=== PATIENT | female | born 1975 | race Caucasian/White ===

== ENCOUNTER 2016-09-03 20:27 | Emergency (ER) | payer OTHER ==
[~2016-09-03 20:27] MED LIST: ABILIFY PO; ACT30 PO; AMBIEN10 MG PO; ASPIR 8181 MG PO; ATI1 PO; ATIVAN1 MG PO; CIPRO500 MG PO; CLONAZEPAM1 MG PO; CYCLOBENZAPRINE5 MG PO; CYMBALTA PO; CYMBALTA20 M1 PO; DEP250 PO; DEPAKOTE500 MG PO; DIVALPROEX SOD500 M2 PO; GABAPENTIN300 M2 PO; GLU5 PO; GLUCOTROL5 MG PO; JANUMET; JANUMET1 TAB PO; KLO1 PO; KLONOPIN1 MG PO; LAC PO; LEVAMIR; LEVAMIR SQ; LEVAQUIN750 MG PO; LEVEMIR100 U/M1 SC; LEVEMIR100 U/M1 SQ; LEVOTHYROXIN0.025 M2 PO; LEXAPRO PO; LEXAPRO20 MG PO; LOP600 PO; LOVASTATIN20 MG PO; LOVASTATIN40 MG PO; MAC100 PO; MACROBID100 MG PO; MEDDP PO; MEV20 PO; MOTRIN800 MG PO; OXYCODONE HCL A1 TAB PO; PERCOCET1 TA2 PO; REG5 PO; REGLAN10 MG PO; RES7 PO; SYN25 PO; SYN5 PO; SYNTHROID0.025 MG; TEMAZEPAM15 MG PO; VENTOLIN H0.09 MG/A1 INH; ZES20 PO; ZESTRIL20 MG PO; ZITHROMAX Z-PA250 MG PO; ZOF4 PO; [UNRECOGNIZED DRUG - REMARK] PO
[2016-09-03 22:11] LABS: BASOPHIL % 0.3 % (0-2); PLATELET COUNT 319 x10^3mcL (130-400); RED CELL DISTRIBUTION WIDTH 13.1 % (11.5-14.5)
[2016-09-03 22:19] LABS: CALCIUM 9.7 mg/dL (8.5-10.1); CARBON DIOXIDE 23.7 mmol/L (21-32); CHLORIDE SERUM 98 mmol/L (98-107); CREATININE SERUM 0.8 mg/dL (0.6-1.0); GFR1 > 60 mL/min; GLUCOSE SERUM 365 mg/dL (74-106); POTASSIUM SERUM 3.7 mmol/L (3.5-5.1); SODIUM SERUM 136 mmol/L (136-145)
[2016-09-03 22:23] LABS: ALKALINE PHOSPHATASE 54 U/L (46-116); ALT/SGPT 24 U/L (14-59); AMYLASE 33 U/L (25-115); AST/SGOT 10 U/L (15-37); BILIRUBIN TOTAL 0.31 mg/dL (0.20-1.00); LIPASE 78 IU/L (73-393); TOTAL PROTEIN, SERUM 7.9 g/dL (6.4-8.2)
[2016-09-03 23:17] LABS: UA SPECIFIC GRAVITY 1.025 (1.005-1.035); microscopic required? YES; urine erythrocyte 3+ (NEGATIVE)
[2016-09-04 01:13] VITALS: BP 144/97
== END 2016-09-04 01:13 | disposition home or self-care (01) ==
LOC: ED 20:27
PROVIDERS: Specialist
DX: N39.0 Urinary tract infection, site not specified (principal); N76.0 Acute vaginitis; E66.01 Morbid (severe) obesity due to excess calories; E78.00 Pure hypercholesterolemia, unspecified; E03.9 Hypothyroidism, unspecified; M79.7 Fibromyalgia; M06.9 Rheumatoid arthritis, unspecified; I11.9 Hypertensive heart disease without heart failure; E11.65 Type 2 diabetes mellitus with hyperglycemia
CPT/HCPCS: 83880; 87491; 87591; J0696; J1170; J1815; J1885; J2405; J3010; J7030

== ENCOUNTER 2016-09-06 03:52 | Emergency (ER) | payer OTHER ==
[2016-09-06 04:48] LABS: BASOPHIL % 0.5 % (0-2); PLATELET COUNT 338 x10^3mcL (130-400); RED CELL DISTRIBUTION WIDTH 12.8 % (11.5-14.5)
[2016-09-06 04:49] LABS: microscopic required? YES; urine erythrocyte TRACE (NEGATIVE)
[2016-09-06 04:55] LABS: CALCIUM 9.7 mg/dL (8.5-10.1); CARBON DIOXIDE 22.9 mmol/L (21-32); CHLORIDE SERUM 100 mmol/L (98-107); CREATININE SERUM 0.6 mg/dL (0.6-1.0); GFR1 > 60 mL/min; GLUCOSE SERUM 299 mg/dL (74-106); SODIUM SERUM 136 mmol/L (136-145)
[2016-09-06 05:11] LABS: CK-MB < 0.5 ng/mL (0-3.6); CREATINE KINASE 45 U/L (26-192)
[2016-09-06 05:13] LABS: ALBUMIN 3.9 g/dL (3.4-5.0); ALKALINE PHOSPHATASE 54 U/L (46-116); ALT/SGPT 26 U/L (14-59); AST/SGOT 13 U/L (15-37); BILIRUBIN TOTAL 0.27 mg/dL (0.20-1.00); TOTAL PROTEIN, SERUM 8.2 g/dL (6.4-8.2)
[2016-09-06 05:36] VITALS: BP 137/93
== END 2016-09-06 05:36 | disposition home or self-care (01) ==
LOC: ED 03:52
PROVIDERS: Emergency Medicine
DX: M54.9 Dorsalgia, unspecified (principal); N39.0 Urinary tract infection, site not specified; F31.9 Bipolar disorder, unspecified; M79.7 Fibromyalgia; F41.9 Anxiety disorder, unspecified; Z79.899 Other long term (current) drug therapy
CPT/HCPCS: 83880; J1200; J2765; J3010; J7030; Q0092

== ENCOUNTER 2016-10-14 01:57 | Emergency (ER) | payer MEDICAID ==
[2016-10-14 02:50] LABS: CALCIUM 8.9 mg/dL (8.5-10.1); CHLORIDE SERUM 101 mmol/L (98-107); CREATININE SERUM 0.7 mg/dL (0.6-1.0); GFR1 > 60 mL/min; GLUCOSE SERUM 300 mg/dL (74-106); POTASSIUM SERUM 3.7 mmol/L (3.5-5.1); SODIUM SERUM 137 mmol/L (136-145)
[2016-10-14 03:00] LABS: CREATINE KINASE 56 U/L (26-192)
[2016-10-14 03:04] LABS: BASOPHIL % 0.5 % (0-2); PLATELET COUNT 318 x10^3mcL (130-400); RED CELL DISTRIBUTION WIDTH 13.2 % (11.5-14.5)
[2016-10-14 03:06] LABS: ALBUMIN 3.8 g/dL (3.4-5.0); ALKALINE PHOSPHATASE 53 U/L (46-116); ALT/SGPT 11 U/L (14-59); AST/SGOT 11 U/L (15-37); BILIRUBIN TOTAL 0.25 mg/dL (0.20-1.00); CK-MB < 0.5 ng/mL (0-3.6); TOTAL PROTEIN, SERUM 7.6 g/dL (6.4-8.2)
[2016-10-14 05:49] VITALS: BP 150/111
== END 2016-10-14 05:49 | disposition home or self-care (01) ==
LOC: ED 01:57
PROVIDERS: Emergency Medicine
DX: E11.65 Type 2 diabetes mellitus with hyperglycemia (principal); F31.9 Bipolar disorder, unspecified; M79.7 Fibromyalgia; M06.9 Rheumatoid arthritis, unspecified; F41.9 Anxiety disorder, unspecified; I25.2 Old myocardial infarction; I10 Essential (primary) hypertension; E11.9 Type 2 diabetes mellitus without complications
CPT/HCPCS: 82962; 83880; J1815; J7030; Q0092

== ENCOUNTER 2016-12-07 21:30 | Emergency (ER) | payer SELFPAY ==
[~2016-12-07] VITALS: Ht 180.3 cm; Wt 125.6 kg
[2016-12-07 21:59] VITALS: BP 133/89
== END 2016-12-08 00:14 | disposition home or self-care (01) ==
LOC: ED 21:30
DX: M54.32 Sciatica, left side (principal); I10 Essential (primary) hypertension; E11.9 Type 2 diabetes mellitus without complications; F99 Mental disorder, not otherwise specified; M79.605 Pain in left leg; Z79.899 Other long term (current) drug therapy; Z79.84 Long term (current) use of oral hypoglycemic drugs

== ENCOUNTER 2016-12-18 17:44 | Emergency (ER) | payer SELFPAY ==
[2016-12-18 22:11] VITALS: BP 148/82
== END 2016-12-18 22:11 | disposition home or self-care (01) ==
LOC: ED 17:44
DX: M54.5 Low back pain (principal); M79.662 Pain in left lower leg; E11.9 Type 2 diabetes mellitus without complications; Z79.84 Long term (current) use of oral hypoglycemic drugs; Z79.899 Other long term (current) drug therapy
CPT/HCPCS: J1885

== ENCOUNTER 2016-12-22 08:21 | Emergency (ER) | payer SELFPAY ==
[~2016-12-22] VITALS: Ht 180.3 cm; Wt 127.5 kg
[2016-12-22 09:24] VITALS: BP 140/64
== END 2016-12-22 09:24 | disposition home or self-care (01) ==
LOC: ED 08:21
DX: M54.42 Lumbago with sciatica, left side (principal); F11.20 Opioid dependence, uncomplicated; I10 Essential (primary) hypertension; E11.9 Type 2 diabetes mellitus without complications; Z79.899 Other long term (current) drug therapy
CPT/HCPCS: J0780; J3010

== ENCOUNTER 2016-12-27 00:42 | Emergency (ER) | payer MEDICAID ==
[2016-12-27 04:44] LABS: CALCIUM 9.2 mg/dL (8.5-10.1); CARBON DIOXIDE 23.6 mmol/L (21-32); CHLORIDE SERUM 103 mmol/L (98-107); CREATININE SERUM 0.6 mg/dL (0.6-1.0); GFR1 > 60 mL/min; GLUCOSE SERUM 138 mg/dL (74-106); POTASSIUM SERUM 3.7 mmol/L (3.5-5.1); SODIUM SERUM 138 mmol/L (136-145)
[2016-12-27 04:46] LABS: BASOPHIL % 0.5 % (0-2); PLATELET COUNT 304 x10^3mcL (130-400); RED CELL DISTRIBUTION WIDTH 13.2 % (11.5-14.5)
[2016-12-27 04:48] LABS: ALBUMIN 3.8 g/dL (3.4-5.0); ALKALINE PHOSPHATASE 43 U/L (46-116); ALT/SGPT 26 U/L (14-59); AST/SGOT 17 U/L (15-37); BILIRUBIN TOTAL 0.18 mg/dL (0.20-1.00); HDL CHOLESTEROL 49 mg/dL (40-60); LIPASE 104 IU/L (73-393); TOTAL PROTEIN, SERUM 7.5 g/dL (6.4-8.2)
[2016-12-27 04:51] LABS: CHOLESTEROL 252 mg/dL (<200); CHOLESTEROL/HDL RATIO 5.1; TRIGLYCERIDES 455 mg/dL (<150)
[2016-12-27 04:57] LABS: T3 TOTAL 1.46 ng/mL
[2016-12-27 05:07] LABS: FREE T4 1.03 ng/dL (0.76-1.46); FREE THYROXINE INDEX 3.5 ug/dL (1.4-4.5); T4(THYROXINE) 9.8 ug/dL (4.7-13.3)
[2016-12-27] MEDS ORDERED: GLIPIZIDE5 M2 PO (07:45)
[2016-12-27] MEDS ORDERED: LEVOTHYROXIN0.025 M2 PO (07:45)
[2016-12-27] MEDS ORDERED: DEPAKOTE500 MG PO (07:45)
[2016-12-27] MEDS ORDERED: LANTUS SOLOS100 U/M1 SC (07:45)
[2016-12-27 10:19] VITALS: BP 139/92
== END 2016-12-27 10:19 | disposition home or self-care (01) ==
LOC: ED 00:42
PROVIDERS: Specialist
DX: S63.502A Unspecified sprain of left wrist, initial encounter (principal); F31.9 Bipolar disorder, unspecified; R07.89 Other chest pain; M06.9 Rheumatoid arthritis, unspecified; F41.9 Anxiety disorder, unspecified; E78.00 Pure hypercholesterolemia, unspecified; Y99.8 Other external cause status; W19.XXXA Unspecified fall, initial encounter; Y93.01 Activity, walking, marching and hiking; Y92.89 Other specified places as the place of occurrence of the external cause; Z79.899 Other long term (current) drug therapy; Z79.84 Long term (current) use of oral hypoglycemic drugs; Z79.4 Long term (current) use of insulin
CPT/HCPCS: 83880; 84439; A4570; J1170; J1885; J7030; Q0162

== ENCOUNTER 2017-01-12 22:49 | Emergency (ER) | payer MEDICAID ==
[~2017-01-12 22:49] MED LIST changes: +GLIPIZIDE5 M2 PO; +LANTUS SOLOS100 U/M1 SC
[2017-01-13 00:33] VITALS: BP 130/77
== END 2017-01-13 00:33 | disposition home or self-care (01) ==
LOC: ED 22:49
DX: S63.501A Unspecified sprain of right wrist, initial encounter (principal); E11.9 Type 2 diabetes mellitus without complications; M79.7 Fibromyalgia; I10 Essential (primary) hypertension; E78.00 Pure hypercholesterolemia, unspecified; Z79.4 Long term (current) use of insulin; Z90.49 Acquired absence of other specified parts of digestive tract; X58.XXXA Exposure to other specified factors, initial encounter; Y93.89 Activity, other specified; Y99.8 Other external cause status; Y92.89 Other specified places as the place of occurrence of the external cause
CPT/HCPCS: Q0092

== ENCOUNTER 2017-02-24 03:07 | Emergency (ER) | payer MEDICAID ==
[2017-02-24 04:26] LABS: BASOPHIL % 0.5 % (0-2); PLATELET COUNT 339 x10^3mcL (130-400); RED CELL DISTRIBUTION WIDTH 13.1 % (11.5-14.5)
[2017-02-24 04:30] LABS: CALCIUM 9.6 mg/dL (8.5-10.1); CARBON DIOXIDE 26.1 mmol/L (21-32); CHLORIDE SERUM 101 mmol/L (98-107); CREATININE SERUM 0.7 mg/dL (0.6-1.0); GFR1 > 60 mL/min; GLUCOSE SERUM 252 mg/dL (74-106); POTASSIUM SERUM 3.8 mmol/L (3.5-5.1); SODIUM SERUM 138 mmol/L (136-145)
[2017-02-24 04:35] LABS: ALBUMIN 3.9 g/dL (3.4-5.0); ALKALINE PHOSPHATASE 39 U/L (46-116); ALT/SGPT 31 U/L (14-59); AST/SGOT 12 U/L (15-37); BILIRUBIN TOTAL 0.27 mg/dL (0.20-1.00); TOTAL PROTEIN, SERUM 7.9 g/dL (6.4-8.2)
[2017-02-24 05:26] VITALS: BP 142/92
== END 2017-02-24 05:26 | disposition home or self-care (01) ==
LOC: ED 03:07
PROVIDERS: Emergency Medicine
DX: R51 Headache (principal); R53.1 Weakness; I10 Essential (primary) hypertension; E11.9 Type 2 diabetes mellitus without complications; Z79.4 Long term (current) use of insulin; Z79.84 Long term (current) use of oral hypoglycemic drugs
CPT/HCPCS: 36415; 82962; J1170

== ENCOUNTER 2017-02-27 20:30 | Emergency (ER) | payer MEDICAID ==
[2017-02-27 22:11] LABS: BASOPHIL % 0.5 % (0-2); PLATELET COUNT 342 x10^3mcL (130-400)
[2017-02-27 22:28] LABS: CALCIUM 9.9 mg/dL (8.5-10.1); CARBON DIOXIDE 25.6 mmol/L (21-32); CHLORIDE SERUM 99 mmol/L (98-107); CREATININE SERUM 0.6 mg/dL (0.6-1.0); GFR1 > 60 mL/min; GLUCOSE SERUM 241 mg/dL (74-106); POTASSIUM SERUM 3.9 mmol/L (3.5-5.1); SODIUM SERUM 136 mmol/L (136-145)
[2017-02-27 22:29] LABS: ALKALINE PHOSPHATASE 55 U/L (46-116); ALT/SGPT 34 U/L (14-59); AST/SGOT 13 U/L (15-37); BILIRUBIN TOTAL 0.2 mg/dL (0.20-1.00); TOTAL PROTEIN, SERUM 8.1 g/dL (6.4-8.2)
[2017-02-27 22:40] LABS: UA SPECIFIC GRAVITY >=1.030 (1.005-1.035); microscopic required? YES; urine erythrocyte NEGATIVE (NEGATIVE)
[2017-02-28 01:11] VITALS: BP 142/86
== END 2017-02-28 01:11 | disposition home or self-care (01) ==
LOC: ED 20:30
PROVIDERS: Emergency Medicine
DX: N39.0 Urinary tract infection, site not specified (principal); I10 Essential (primary) hypertension; E78.00 Pure hypercholesterolemia, unspecified; I25.2 Old myocardial infarction; M79.7 Fibromyalgia; E11.9 Type 2 diabetes mellitus without complications; Z90.89 Acquired absence of other organs
CPT/HCPCS: J1170; Q0162

== ENCOUNTER 2017-03-29 18:45 | Inpatient (IN) | payer MEDICAID ==
[~2017-03-29] VITALS: Ht 180.3 cm; Wt 132.0 kg
[2017-03-29 20:06] LABS: BASOPHIL % 0.8 % (0-2); PLATELET COUNT 333 x10^3mcL (130-400); RED CELL DISTRIBUTION WIDTH 13.4 % (11.5-14.5)
[2017-03-29 20:07] LABS: microscopic required? YES; urine erythrocyte NEGATIVE (NEGATIVE)
[2017-03-29 20:30] LABS: AMPHETAMINE QUAL UR NONE DETECTED (NEG <=1000)
[2017-03-29 20:38] LABS: CALCIUM 8.9 mg/dL (8.5-10.1); CARBON DIOXIDE 26.6 mmol/L (21-32); CHLORIDE SERUM 102 mmol/L (98-107); CREATININE SERUM 0.7 mg/dL (0.6-1.0); GFR1 > 60 mL/min; GLUCOSE SERUM 363 mg/dL (74-106); POTASSIUM SERUM 3.6 mmol/L (3.5-5.1); SODIUM SERUM 138 mmol/L (136-145)
[2017-03-29 20:42] LABS: ALBUMIN 3.6 g/dL (3.4-5.0); ALKALINE PHOSPHATASE 54 U/L (46-116); ALT/SGPT 32 U/L (14-59); AMYLASE 34 U/L (25-115); AST/SGOT 10 U/L (15-37); CHOLESTEROL 198 mg/dL (<200); LIPASE 86 IU/L (73-393); T4(THYROXINE) 7.9 ug/dL (4.7-13.3); TOTAL PROTEIN, SERUM 7.3 g/dL (6.4-8.2)
[2017-03-29 21:02] LABS: HDL CHOLESTEROL 34 mg/dL (40-60)
[2017-03-29 21:13] LABS: BILIRUBIN TOTAL 0.19 mg/dL (0.20-1.00)
[2017-03-29] MEDS ORDERED: LIPI10 PO (22:29)
[2017-03-29] MEDS ORDERED: ZESTRIL20 MG PO (22:29)
[2017-03-29] MEDS ORDERED: LEVOTHYROXIN0.025 M2 PO (22:29)
[2017-03-29] MEDS ORDERED: LANTUS SOLOS100 U/M1 SQ (22:29)
[2017-03-29] MEDS ORDERED: DEPAKOTE500 MG PO (22:30)
[2017-03-29] MEDS ORDERED: CYMBALTA20 M1 PO (22:30)
[2017-03-29] MEDS ORDERED: GLIPIZIDE5 M2 PO (22:31)
[2017-03-29] MEDS ORDERED: JANUMET 50-1,01 EACH PO (22:31)
[2017-03-29] MEDS ORDERED: RES30 PO (22:32)
[2017-03-29 23:26] VITALS: BP 152/102
[2017-03-29 23:37] VITALS: BP 152/102
[2017-03-30 00:31] LABS: MAGNESIUM 1.5 mg/dL (1.8-2.4); PHOSPHOROUS 2.9 mg/dL (2.5-4.9)
[2017-03-30 04:25] LABS: BASOPHIL % 0.6 % (0-2); PLATELET COUNT 309 x10^3mcL (130-400); RED CELL DISTRIBUTION WIDTH 13.4 % (11.5-14.5)
[2017-03-30 04:41] LABS: CALCIUM 8.3 mg/dL (8.5-10.1); CARBON DIOXIDE 27.6 mmol/L (21-32); CHLORIDE SERUM 103 mmol/L (98-107); CREATININE SERUM 0.6 mg/dL (0.6-1.0); GFR1 > 60 mL/min; GLUCOSE SERUM 317 mg/dL (74-106); MAGNESIUM 1.4 mg/dL (1.8-2.4); PHOSPHOROUS 3.8 mg/dL (2.5-4.9); POTASSIUM SERUM 4.1 mmol/L (3.5-5.1); SODIUM SERUM 136 mmol/L (136-145)
[2017-03-30 06:13] VITALS: BP 129/71
[2017-03-30 07:40] VITALS: BP 146/93
[2017-03-30] MEDS ORDERED: LANTUS SOLOS100 U/M1 SQ (14:03)
[2017-03-30 14:04] VITALS: BP 146/93
[2017-03-30] MEDS ORDERED: ZOF4 PO (14:34)
[2017-03-30 16:01] VITALS: BP 161/98
[2017-03-30 18:40] VITALS: BP 151/95
[2017-03-30 22:08] VITALS: BP 146/89
[2017-03-31 06:08] VITALS: BP 134/89
[2017-03-31 06:15] LABS: BASOPHIL % 0.5 % (0-2); PLATELET COUNT 290 x10^3mcL (130-400); RED CELL DISTRIBUTION WIDTH 13.2 % (11.5-14.5)
[2017-03-31 06:40] LABS: CALCIUM 8.5 mg/dL (8.5-10.1); CHLORIDE SERUM 105 mmol/L (98-107); CREATININE SERUM 0.5 mg/dL (0.6-1.0); GFR1 > 60 mL/min; GLUCOSE SERUM 168 mg/dL (74-106); MAGNESIUM 1.8 mg/dL (1.8-2.4); PHOSPHOROUS 3.8 mg/dL (2.5-4.9); POTASSIUM SERUM 3.5 mmol/L (3.5-5.1); SODIUM SERUM 140 mmol/L (136-145)
[2017-03-31 09:33] VITALS: BP 143/97
[2017-03-31 11:20] VITALS: BP 143/97
[2017-03-31] MEDS ORDERED: BD LACTINEX1.4 MG PO (11:38)
[2017-03-31] MEDS ORDERED: BACTRIM DS1 TAB PO (11:38)
== END 2017-03-31 13:08 | disposition home or self-care (01) | DRG 203 ==
LOC: ED 18:45 → DU 22:16
PROVIDERS: Emergency Medicine; ADMIT Family Medicine
DX: M94.0 Chondrocostal junction syndrome [Tietze] (principal); K31.84 Gastroparesis; E11.65 Type 2 diabetes mellitus with hyperglycemia; E11.43 Type 2 diabetes mellitus with diabetic autonomic (poly)neuropathy; E83.42 Hypomagnesemia; Z68.41 Body mass index [BMI] 40.0-44.9, adult; I16.0 Hypertensive urgency; M79.7 Fibromyalgia; F31.9 Bipolar disorder, unspecified; M06.9 Rheumatoid arthritis, unspecified; G47.00 Insomnia, unspecified; I25.2 Old myocardial infarction; D64.9 Anemia, unspecified; E83.51 Hypocalcemia; E78.5 Hyperlipidemia, unspecified; E03.9 Hypothyroidism, unspecified; E66.01 Morbid (severe) obesity due to excess calories; Z79.4 Long term (current) use of insulin
CPT/HCPCS: 36600; 82962; 83880; J0696; J1815; J2270; J2405; J2765; J3475; J7030; Q0092

== ENCOUNTER 2017-05-13 16:27 | Emergency (ER) | payer OTHER ==
[~2017-05-13 16:27] MED LIST changes: +BACTRIM DS1 TAB PO; +BD LACTINEX1.4 MG PO; +JANUMET 50-1,01 EACH PO; +LANTUS SOLOS100 U/M1 SQ; +LIPI10 PO; +RES30 PO
[2017-05-13 18:45] VITALS: BP 123/82
== END 2017-05-13 18:41 | disposition home or self-care (01) ==
LOC: ED 16:27
DX: M25.531 Pain in right wrist (principal); I10 Essential (primary) hypertension; E11.9 Type 2 diabetes mellitus without complications; E07.9 Disorder of thyroid, unspecified; E78.00 Pure hypercholesterolemia, unspecified; M79.7 Fibromyalgia; I25.2 Old myocardial infarction; Z90.49 Acquired absence of other specified parts of digestive tract; M06.9 Rheumatoid arthritis, unspecified; W01.0XXA Fall on same level from slipping, tripping and stumbling without subsequent striking against object, initial encounter; Y93.89 Activity, other specified; Y92.89 Other specified places as the place of occurrence of the external cause; Y99.8 Other external cause status

== ENCOUNTER 2017-07-05 16:36 | Emergency (ER) | payer OTHER ==
[~2017-07-05] VITALS: Ht 180.3 cm; Wt 128.4 kg
[2017-07-05 16:48] VITALS: Ht 180.3 cm; Wt 128.4 kg
[2017-07-05 17:32] LABS: BASOPHIL % 0.5 % (0-2); PLATELET COUNT 324 x10^3mcL (130-400); RED CELL DISTRIBUTION WIDTH 13.5 % (11.5-14.5)
[2017-07-05 17:36] LABS: CARBON DIOXIDE 26.4 mmol/L (21-32); CREATININE SERUM 1.1 mg/dL (0.6-1.0); POTASSIUM SERUM 4.1 mmol/L (3.5-5.1)
[2017-07-05 17:40] LABS: ALBUMIN 3.8 g/dL (3.4-5.0); BILIRUBIN TOTAL 0.2 mg/dL (0.20-1.00); TOTAL PROTEIN, SERUM 7.7 g/dL (6.4-8.2)
[2017-07-05 18:54] VITALS: BP 123/84
== END 2017-07-05 18:54 | disposition home or self-care (01) ==
LOC: ED 16:36
PROVIDERS: Emergency Medicine
DX: R10.11 Right upper quadrant pain (principal); R11.2 Nausea with vomiting, unspecified; E11.65 Type 2 diabetes mellitus with hyperglycemia; I10 Essential (primary) hypertension; M79.7 Fibromyalgia; E07.9 Disorder of thyroid, unspecified; E78.00 Pure hypercholesterolemia, unspecified; I25.2 Old myocardial infarction
CPT/HCPCS: 36415; 83880; J1885

== ENCOUNTER 2017-07-23 16:52 | Emergency (ER) | payer OTHER ==
[~2017-07-23] VITALS: Ht 180.3 cm; Wt 108.0 kg
[2017-07-23 17:19] VITALS: Ht 180.3 cm; Wt 108.0 kg
[2017-07-23 19:33] VITALS: BP 141/88
== END 2017-07-23 19:34 | disposition home or self-care (01) ==
LOC: ED 16:52
DX: S40.811A Abrasion of right upper arm, initial encounter (principal); I10 Essential (primary) hypertension; E11.9 Type 2 diabetes mellitus without complications; M79.7 Fibromyalgia; E78.00 Pure hypercholesterolemia, unspecified; Z90.49 Acquired absence of other specified parts of digestive tract; X58.XXXA Exposure to other specified factors, initial encounter; Y93.89 Activity, other specified; Y92.89 Other specified places as the place of occurrence of the external cause; Y99.8 Other external cause status
CPT/HCPCS: 90715; A4570; Q0092

== ENCOUNTER 2017-10-07 09:14 | Emergency (ER) | payer OTHER ==
[~2017-10-07] VITALS: Ht 180.3 cm; Wt 126.1 kg
[2017-10-07 09:20] VITALS: BP 134/80
== END 2017-10-07 11:03 | disposition home or self-care (01) ==
LOC: ED 09:14
DX: S83.92XA Sprain of unspecified site of left knee, initial encounter (principal); S93.402A Sprain of unspecified ligament of left ankle, initial encounter; I10 Essential (primary) hypertension; E11.9 Type 2 diabetes mellitus without complications; E78.00 Pure hypercholesterolemia, unspecified; M79.7 Fibromyalgia; Z90.49 Acquired absence of other specified parts of digestive tract; I25.2 Old myocardial infarction; W01.0XXA Fall on same level from slipping, tripping and stumbling without subsequent striking against object, initial encounter; Y93.89 Activity, other specified; Y92.89 Other specified places as the place of occurrence of the external cause; Y99.8 Other external cause status

== ENCOUNTER 2017-12-23 02:26 | Emergency (ER) | payer OTHER ==
[~2017-12-23] VITALS: Ht 180.3 cm; Wt 130.2 kg
[2017-12-23 02:40] VITALS: Ht 180.3 cm; Wt 130.2 kg
[2017-12-23 04:38] LABS: CALCIUM 9.4 mg/dL (8.5-10.1); CARBON DIOXIDE 24.6 mmol/L (21-32); CHLORIDE SERUM 99 mmol/L (98-107); CREATININE SERUM 0.7 mg/dL (0.6-1.0); GFR1 > 60 mL/min; GLUCOSE SERUM 313 mg/dL (74-106); POTASSIUM SERUM 3.7 mmol/L (3.5-5.1); SODIUM SERUM 136 mmol/L (136-145)
[2017-12-23 04:42] LABS: BASOPHIL % 0.3 % (0-2); PLATELET COUNT 388 x10^3mcL (130-400); RED CELL DISTRIBUTION WIDTH 13.7 % (11.5-14.5)
[2017-12-23 04:42] LABS: microscopic required? YES; urine erythrocyte TRACE (NEGATIVE)
[2017-12-23 04:43] LABS: ALBUMIN 4.2 g/dL (3.4-5.0); ALKALINE PHOSPHATASE 62 U/L (46-116); ALT/SGPT 22 U/L (14-59); AST/SGOT 14 U/L (15-37); BILIRUBIN TOTAL 0.2 mg/dL (0.20-1.00); LIPASE 271 IU/L (73-393); TOTAL PROTEIN, SERUM 8.7 g/dL (6.4-8.2)
[2017-12-23 07:30] VITALS: BP 156/96
== END 2017-12-23 07:30 | disposition home or self-care (01) ==
LOC: ED 02:26
PROVIDERS: Emergency Medicine
DX: N39.0 Urinary tract infection, site not specified (principal); I10 Essential (primary) hypertension; E11.9 Type 2 diabetes mellitus without complications; E78.00 Pure hypercholesterolemia, unspecified; Z90.49 Acquired absence of other specified parts of digestive tract
CPT/HCPCS: 83880; J0696; J2270; J2405; J2765; J3490; J7030

== ENCOUNTER 2018-03-07 16:43 | Emergency (ER) | payer OTHER ==
[~2018-03-07] VITALS: Ht 177.8 cm; Wt 128.4 kg
[2018-03-07 16:47] VITALS: Ht 177.8 cm; Wt 128.4 kg
[2018-03-07 17:45] LABS: BASOPHIL % 1.6 % (0-2); PLATELET COUNT 176 x10^3mcL (130-400); RED CELL DISTRIBUTION WIDTH 12.5 % (11.5-14.5)
[2018-03-07 18:04] LABS: CALCIUM 9.3 mg/dL (8.5-10.1); CARBON DIOXIDE 26.6 mmol/L (21-32); CHLORIDE SERUM 99 mmol/L (98-107); CREATININE SERUM 0.7 mg/dL (0.6-1.0); GFR1 > 60 mL/min; GLUCOSE SERUM 417 mg/dL (74-106); SODIUM SERUM 135 mmol/L (136-145)
[2018-03-07 18:06] VITALS: BP 120/75
[2018-03-07 18:09] LABS: ALBUMIN 3.7 g/dL (3.4-5.0); ALKALINE PHOSPHATASE 50 U/L (46-116); ALT/SGPT 21 U/L (14-59); AST/SGOT 12 U/L (15-37); BILIRUBIN TOTAL 0.17 mg/dL (0.20-1.00); TOTAL PROTEIN, SERUM 7.3 g/dL (6.4-8.2)
== END 2018-03-07 19:22 | disposition left against medical advice (07) ==
LOC: ED 16:43 → DU 18:17 → ED 18:17 → DU 19:22
PROVIDERS: Emergency Medicine
DX: R07.9 Chest pain, unspecified (principal); I10 Essential (primary) hypertension; E11.9 Type 2 diabetes mellitus without complications; E07.9 Disorder of thyroid, unspecified; F99 Mental disorder, not otherwise specified; I25.10 Atherosclerotic heart disease of native coronary artery without angina pectoris
CPT/HCPCS: 83880; J2270; J2405; J3490; Q0092

== ENCOUNTER 2018-03-25 19:41 | Emergency (ER) | payer OTHER ==
[~2018-03-25] VITALS: Ht 177.8 cm; Wt 129.5 kg
[2018-03-25 20:21] VITALS: Ht 177.8 cm; Wt 129.5 kg
[2018-03-25 22:04] VITALS: BP 116/84
== END 2018-03-25 22:04 | disposition home or self-care (01) ==
LOC: ED 19:41
DX: S50.11XA Contusion of right forearm, initial encounter (principal); I10 Essential (primary) hypertension; E11.9 Type 2 diabetes mellitus without complications; E78.00 Pure hypercholesterolemia, unspecified; F41.9 Anxiety disorder, unspecified; F31.9 Bipolar disorder, unspecified; M79.7 Fibromyalgia; Z86.79 Personal history of other diseases of the circulatory system; Z90.49 Acquired absence of other specified parts of digestive tract; Z98.890 Other specified postprocedural states; Z86.39 Personal history of other endocrine, nutritional and metabolic disease; W10.8XXA Fall (on) (from) other stairs and steps, initial encounter; Y93.89 Activity, other specified; Y92.098 Other place in other non-institutional residence as the place of occurrence of the external cause; Y99.8 Other external cause status
CPT/HCPCS: Q0092

== ENCOUNTER 2018-04-14 16:19 | Emergency (ER) | payer OTHER ==
[~2018-04-14] VITALS: Ht 177.8 cm; Wt 129.3 kg
[2018-04-14 16:21] VITALS: Ht 177.8 cm; Wt 129.3 kg
[2018-04-14 17:33] LABS: BASOPHIL % 0.7 % (0-2); PLATELET COUNT 345 x10^3mcL (130-400); RED CELL DISTRIBUTION WIDTH 13.9 % (11.5-14.5)
[2018-04-14 17:41] LABS: CARBON DIOXIDE 27.4 mmol/L (21-32); CHLORIDE SERUM 103 mmol/L (98-107); CREATININE SERUM 0.8 mg/dL (0.6-1.0); GFR1 > 60 mL/min; GLUCOSE SERUM 384 mg/dL (74-106); POTASSIUM SERUM 4.5 mmol/L (3.5-5.1); SODIUM SERUM 139 mmol/L (136-145)
[2018-04-14 17:46] LABS: ALBUMIN 3.7 g/dL (3.4-5.0); ALKALINE PHOSPHATASE 59 U/L (46-116); ALT/SGPT 34 U/L (14-59); AST/SGOT 11 U/L (15-37); BILIRUBIN TOTAL 0.21 mg/dL (0.20-1.00); TOTAL PROTEIN, SERUM 7.8 g/dL (6.4-8.2)
[2018-04-14 20:12] VITALS: BP 138/84
== END 2018-04-14 20:12 | disposition home or self-care (01) ==
LOC: ED 16:19
PROVIDERS: Emergency Medicine
DX: N39.0 Urinary tract infection, site not specified (principal); M54.41 Lumbago with sciatica, right side; E11.65 Type 2 diabetes mellitus with hyperglycemia; I10 Essential (primary) hypertension; F31.9 Bipolar disorder, unspecified; M06.9 Rheumatoid arthritis, unspecified; E78.00 Pure hypercholesterolemia, unspecified; I21.9 Acute myocardial infarction, unspecified; Z90.49 Acquired absence of other specified parts of digestive tract
CPT/HCPCS: 82962; J1885; J7030; Q0092

== ENCOUNTER 2018-05-28 17:21 | Emergency (ER) | payer OTHER ==
[~2018-05-28] VITALS: Ht 177.8 cm; Wt 127.5 kg
[2018-05-28 17:28] VITALS: Ht 177.8 cm; Wt 127.5 kg
[2018-05-28 18:16] LABS: BASOPHIL % 0.7 % (0-2); PLATELET COUNT 321 x10^3mcL (130-400)
[2018-05-28 18:26] LABS: CALCIUM 8.9 mg/dL (8.5-10.1); CARBON DIOXIDE 26.3 mmol/L (21-32); CHLORIDE SERUM 100 mmol/L (98-107); CREATININE SERUM 0.7 mg/dL (0.6-1.0); GFR1 > 60 mL/min; GLUCOSE SERUM 424 mg/dL (74-106); POTASSIUM SERUM 4.1 mmol/L (3.5-5.1); SODIUM SERUM 135 mmol/L (136-145)
[2018-05-28 18:31] LABS: ALBUMIN 3.6 g/dL (3.4-5.0); ALKALINE PHOSPHATASE 62 U/L (46-116); ALT/SGPT 21 U/L (14-59); AST/SGOT 12 U/L (15-37); BILIRUBIN TOTAL 0.22 mg/dL (0.20-1.00); TOTAL PROTEIN, SERUM 7.6 g/dL (6.4-8.2)
[2018-05-28 19:44] VITALS: BP 144/83
== END 2018-05-28 19:44 | disposition left against medical advice (07) ==
LOC: ED 17:21
PROVIDERS: Emergency Medicine
DX: E11.65 Type 2 diabetes mellitus with hyperglycemia (principal); I16.0 Hypertensive urgency; R07.89 Other chest pain; F31.9 Bipolar disorder, unspecified; M79.7 Fibromyalgia; I25.2 Old myocardial infarction; E78.00 Pure hypercholesterolemia, unspecified; Z90.49 Acquired absence of other specified parts of digestive tract; Z98.890 Other specified postprocedural states
CPT/HCPCS: 83880; J1815; J2765; Q0092

== ENCOUNTER 2018-06-02 04:57 | Inpatient (IN) | payer OTHER ==
[~2018-06-02] VITALS: Ht 177.8 cm; Wt 129.5 kg
[2018-06-02 06:05] LABS: BASOPHIL % 0.6 % (0-2); PLATELET COUNT 352 x10^3mcL (130-400); RED CELL DISTRIBUTION WIDTH 13.1 % (11.5-14.5)
[2018-06-02 06:18] LABS: CALCIUM 8.5 mg/dL (8.5-10.1); CARBON DIOXIDE 26.7 mmol/L (21-32); CHLORIDE SERUM 102 mmol/L (98-107); CREATININE SERUM 0.7 mg/dL (0.6-1.0); GFR1 > 60 mL/min; GLUCOSE SERUM 362 mg/dL (74-106); SODIUM SERUM 137 mmol/L (136-145)
[2018-06-02 06:23] LABS: ALBUMIN 3.4 g/dL (3.4-5.0); ALKALINE PHOSPHATASE 55 U/L (46-116); ALT/SGPT 15 U/L (14-59); AST/SGOT 10 U/L (15-37); BILIRUBIN TOTAL 0.15 mg/dL (0.20-1.00); TOTAL PROTEIN, SERUM 7.4 g/dL (6.4-8.2)
[2018-06-02 07:18] LABS: CHOLESTEROL/HDL RATIO 4.1; MAGNESIUM 1.4 mg/dL (1.8-2.4); PHOSPHOROUS 3.7 mg/dL (2.5-4.9)
[2018-06-02] MEDS ORDERED: JANUMET 50-1,01 EACH PO (07:28)
[2018-06-02] MEDS ORDERED: BENADRYL ALLERG25 M1 PO (07:29)
[2018-06-02] MEDS ORDERED: ZANTAC 150150 MG PO (07:29)
[2018-06-02] MEDS ORDERED: LOSARTAN POTASS50 M1 PO (07:29)
[2018-06-02] MEDS ORDERED: TOUJEO300 U/ML SQ (07:30)
[2018-06-02] MEDS ORDERED: HUMALOG100 U/ML SQ (07:31)
[2018-06-02] MEDS ORDERED: PERCOCET1 TA5 PO (07:31)
[2018-06-02 07:41] LABS: FREE T4 0.98 ng/dL (0.76-1.46); FREE THYROXINE INDEX 3.3 ug/dL (1.4-4.5); T4(THYROXINE) 9.3 ug/dL (4.7-13.3)
[2018-06-02 08:20] LABS: microscopic required? YES; urine erythrocyte TRACE (NEGATIVE)
[2018-06-02 08:38] LABS: AMPHETAMINE QUAL UR NONE DETECTED (See below)
[2018-06-02 09:27] LABS: T3 TOTAL 0.89 ng/mL
[2018-06-02 09:36] VITALS: BP 149/92
[2018-06-02 14:04] VITALS: BP 138/84
[2018-06-02 17:36] VITALS: BP 133/80
[2018-06-02 21:02] VITALS: BP 127/88
[2018-06-03 05:21] VITALS: BP 143/90
[2018-06-03 06:47] LABS: BASOPHIL % 0.6 % (0-2); PLATELET COUNT 327 x10^3mcL (130-400); RED CELL DISTRIBUTION WIDTH 13.1 % (11.5-14.5)
[2018-06-03 07:00] LABS: CALCIUM 9.2 mg/dL (8.5-10.1); CARBON DIOXIDE 29.3 mmol/L (21-32); CHLORIDE SERUM 102 mmol/L (98-107); CREATININE SERUM 0.6 mg/dL (0.6-1.0); GFR1 > 60 mL/min; GLUCOSE SERUM 258 mg/dL (74-106); MAGNESIUM 1.8 mg/dL (1.8-2.4); PHOSPHOROUS 4.1 mg/dL (2.5-4.9); POTASSIUM SERUM 4.3 mmol/L (3.5-5.1); SODIUM SERUM 138 mmol/L (136-145)
[2018-06-03 09:20] VITALS: Ht 177.8 cm; Wt 129.5 kg
[2018-06-03 11:09] VITALS: BP 133/85
[2018-06-03 13:50] VITALS: BP 133/85
== END 2018-06-03 16:05 | disposition home or self-care (01) | DRG 243 ==
LOC: ED 04:57 → DU 06:05
PROVIDERS: Emergency Medicine; ADMIT Family Medicine
DX: K21.9 Gastro-esophageal reflux disease without esophagitis (principal); E11.65 Type 2 diabetes mellitus with hyperglycemia; I25.2 Old myocardial infarction; Z68.41 Body mass index [BMI] 40.0-44.9, adult; B96.20 Unspecified Escherichia coli [E. coli] as the cause of diseases classified elsewhere; G89.0 Central pain syndrome; I16.0 Hypertensive urgency; M94.0 Chondrocostal junction syndrome [Tietze]; F31.9 Bipolar disorder, unspecified; E78.00 Pure hypercholesterolemia, unspecified; I10 Essential (primary) hypertension; M06.9 Rheumatoid arthritis, unspecified; E66.01 Morbid (severe) obesity due to excess calories; M79.7 Fibromyalgia; Z79.4 Long term (current) use of insulin; Z90.49 Acquired absence of other specified parts of digestive tract; Z83.3 Family history of diabetes mellitus; Z83.49 Family history of other endocrine, nutritional and metabolic diseases; Z82.49 Family history of ischemic heart disease and other diseases of the circulatory system; Z84.89 Family history of other specified conditions; Z56.0 Unemployment, unspecified; Z23 Encounter for immunization
CPT/HCPCS: 82962; 83880; 84439; 85378; 90658; J0696; J2270; J2405; J3475; J7050; J7060; Q0092

== ENCOUNTER 2018-08-14 06:22 | Day surgery (SDC) | payer OTHER ==
[~2018-08-14] VITALS: Ht 177.8 cm; Wt 131.5 kg
[~2018-08-14 06:22] MED LIST changes: +BENADRYL ALLERG25 M1 PO; +HUMALOG100 U/ML SQ; +LOSARTAN POTASS50 M1 PO; +PERCOCET1 TA5 PO; +TOUJEO300 U/ML SQ; +ZANTAC 150150 MG PO
[2018-08-14 06:39] VITALS: BP 147/97
[2018-08-14 09:29] VITALS: BP 138/98
== END 2018-08-14 11:20 | disposition home or self-care (01) ==
LOC: DS 06:22 → OR 07:30 → GI 07:30 → DS 11:20
PROVIDERS: Internal Medicine Gastroenterology
PROC: 0DB68ZX Excision of Stomach, Via Natural or Artificial Opening Endoscopic, Diagnostic (ICD-10-PCS; principal; 2018-08-14 07:30)
DX: R12 Heartburn (principal)
CPT/HCPCS: 43235; J1200; J1610; J2250; J2310; J3010; J3490

== ENCOUNTER 2018-09-06 16:59 | Emergency (ER) | payer OTHER | END 2018-09-06 18:52 | disposition home or self-care (01) | LOC: ED 16:59 ==

== ENCOUNTER 2018-09-13 01:26 | Emergency (ER) | payer OTHER ==
[~2018-09-13] VITALS: Ht 180.3 cm; Wt 127.0 kg
[2018-09-13 05:57] VITALS: BP 129/73
== END 2018-09-13 05:58 | disposition home or self-care (01) ==
LOC: ED 01:26
DX: B37.3 Candidiasis of vulva and vagina (principal); F31.9 Bipolar disorder, unspecified; M79.7 Fibromyalgia; E11.9 Type 2 diabetes mellitus without complications; Z90.49 Acquired absence of other specified parts of digestive tract; Z98.890 Other specified postprocedural states
CPT/HCPCS: J1450; J1885

== ENCOUNTER 2019-01-16 23:51 | Emergency (ER) | payer OTHER ==
[~2019-01-16] VITALS: Ht 180.3 cm; Wt 136.5 kg
[2019-01-17 00:04] VITALS: Ht 180.3 cm; Wt 136.5 kg
[2019-01-17 01:40] LABS: BASOPHIL % 0.3 % (0-2); PLATELET COUNT 356 x10^3mcL (130-400); RED CELL DISTRIBUTION WIDTH 12.9 % (11.5-14.5)
[2019-01-17 01:44] LABS: CALCIUM 9.2 mg/dL (8.5-10.1); CHLORIDE SERUM 102 mmol/L (98-107); CREATININE SERUM 0.9 mg/dL (0.6-1.0); GFR1 > 60 mL/min; GLUCOSE SERUM 153 mg/dL (74-106); POTASSIUM SERUM 3.9 mmol/L (3.5-5.1); SODIUM SERUM 137 mmol/L (136-145)
[2019-01-17 01:49] LABS: ALBUMIN 3.8 g/dL (3.4-5.0); ALKALINE PHOSPHATASE 54 U/L (46-116); ALT/SGPT 32 U/L (14-59); AMYLASE 39 U/L (25-115); AST/SGOT 17 U/L (15-37); BILIRUBIN TOTAL 0.48 mg/dL (0.20-1.00); LIPASE 54 IU/L (73-393); TOTAL PROTEIN, SERUM 7.6 g/dL (6.4-8.2)
[2019-01-17 02:59] VITALS: BP 105/57
== END 2019-01-17 02:59 | disposition home or self-care (01) ==
LOC: ED 23:51
PROVIDERS: Emergency Medicine
DX: K52.9 Noninfective gastroenteritis and colitis, unspecified (principal); I10 Essential (primary) hypertension; E11.9 Type 2 diabetes mellitus without complications; F32.9 Major depressive disorder, single episode, unspecified; E78.00 Pure hypercholesterolemia, unspecified; Z98.890 Other specified postprocedural states; Z90.49 Acquired absence of other specified parts of digestive tract
CPT/HCPCS: J2270; J2405; J7030

== ENCOUNTER 2019-02-17 12:19 | Emergency (ER) | payer OTHER ==
[~2019-02-17] VITALS: Ht 177.8 cm; Wt 134.7 kg
[2019-02-17 12:44] VITALS: Ht 177.8 cm; Wt 134.7 kg
--- NOTE | 2019-02-17 12:49 | NUR ---
EKG IN PROGRESS.
--- NOTE | 2019-02-17 13:07 | NUR ---
AMBULATORY TO RESTROOM WITH DAUGHTERS ASSISTANCE; STS DOES NOT WANT TO USE BEDPAN.
--- NOTE | 2019-02-17 13:15 | NUR ---
PT IN ED FOR DIZZINESS X1.5 MOS. STS WAS SEEN BY UC AND ED AND WAS GIVEN RX FOR MECLIZINE WITH NO RELIEF. PT SPEAKING CLEARLY AND APPROPRIATELY. PT ALSO REPORTS "SPINE PAIN." MSE BY DR SAAB. PT ALSO STS N/V/D. DAUGHTER AT BEDSIDE. PT CONNECTED TO FULL .
[2019-02-17 13:23] LABS: BASOPHIL % 0.7 % (0-2); RED CELL DISTRIBUTION WIDTH 14.4 % (11.5-14.5)
[2019-02-17 13:25] LABS: PLATELET COUNT 440 x10^3mcL (130-400)
--- NOTE | 2019-02-17 13:30 | NUR ---
PT TO CT AT THIS TIME VIA [facility].
[2019-02-17 13:39] LABS: CALCIUM 9.3 mg/dL (8.5-10.1); CHLORIDE SERUM 101 mmol/L (98-107); CREATININE SERUM 0.6 mg/dL (0.6-1.0); GFR1 > 60 mL/min; GLUCOSE SERUM 123 mg/dL (74-106); POTASSIUM SERUM 3.8 mmol/L (3.5-5.1); SODIUM SERUM 141 mmol/L (136-145)
[2019-02-17 13:42] LABS: UA SPECIFIC GRAVITY 1.025 (1.005-1.035); microscopic required? YES; urine erythrocyte NEGATIVE (NEGATIVE)
[2019-02-17 13:51] LABS: ALBUMIN 4.1 g/dL (3.4-5.0); ALKALINE PHOSPHATASE 65 U/L (46-116); ALT/SGPT 24 U/L (14-59); AST/SGOT 14 U/L (15-37); BILIRUBIN TOTAL 0.4 mg/dL (0.20-1.00); CHOLESTEROL 182 mg/dL (<200); HDL CHOLESTEROL 57 mg/dL (40-60); LIPASE 43 IU/L (73-393); MAGNESIUM 1.4 mg/dL (1.8-2.4)
--- NOTE | 2019-02-17 13:52 | NUR ---
CONSENT SIGNED BY PT AND PLACED IN CHART.
[2019-02-17 13:57] LABS: TOTAL PROTEIN, SERUM 8.4 g/dL (6.4-8.2)
--- NOTE | 2019-02-17 13:59 | NUR ---
AT BEDSIDE FOR PROCEDURE.
[2019-02-17 15:01] LABS: AMPHETAMINE QUAL UR NONE DETECTED (See below)
[2019-02-17] MEDS ORDERED: ZANTAC 150150 MG PO (15:29)
[2019-02-17] MEDS ORDERED: ATORVASTATIN CA10 M1 GT (15:29)
[2019-02-17] MEDS ORDERED: COZAAR100 MG PO (15:29)
[2019-02-17] MEDS ORDERED: CYMBALTA30 M1 PO (15:30)
[2019-02-17] MEDS ORDERED: AZULFIDINE500 MG PO (15:30)
[2019-02-17] MEDS ORDERED: METFORMIN500 M1 (15:30)
[2019-02-17] MEDS ORDERED: ALOGLIPTIN25 MG PO (15:31)
--- NOTE | 2019-02-17 15:51 | NUR ---
PER MD PT WANTS TO LEAVE AMA; FORM SIGNED AND PLACED IN CHART.
[2019-02-17 16:11] LABS: APPEARANCE CSF CLEAR; COLOR CSF COLORLESS; RBC CSF 8 /cumm (0); WBC CSF 2 /cumm (0-5)
--- NOTE | 2019-02-17 16:18 | NUR ---
PT GIVEN D/C PAPERWORK.
[2019-02-17 16:19] VITALS: BP 125/70
[2019-02-17 16:19] LABS: APPEARANCE CSF CLEAR; COLOR CSF COLORLESS; WBC CSF 1 /cumm (0-5)
[2019-02-17 16:20] LABS: RBC CSF 8 /cumm (0)
[2019-02-17 16:38] LABS: TOTAL PROTEIN CSF 42.4 mg/dL (15-45)
== END 2019-02-17 16:19 | disposition left against medical advice (07) ==
LOC: ED 12:19 → MU 15:00 → ED 15:00
PROVIDERS: Emergency Medicine
DX: M54.2 Cervicalgia (principal); M06.9 Rheumatoid arthritis, unspecified; E11.9 Type 2 diabetes mellitus without complications; I10 Essential (primary) hypertension; E78.00 Pure hypercholesterolemia, unspecified; F31.9 Bipolar disorder, unspecified; M79.7 Fibromyalgia; E66.9 Obesity, unspecified; Z68.41 Body mass index [BMI] 40.0-44.9, adult; Z98.890 Other specified postprocedural states
CPT/HCPCS: 82962; G0480; J2930; J7030; Q0092